=== PATIENT | female | born 1965 | race African-American/Black ===

== ENCOUNTER 2020-12-05 10:42 | Emergency (ER) | payer MEDICAID ==
[~2020-12-05] VITALS: Ht 160 cm; Wt 69.0 kg
[2020-12-05] MEDS ORDERED: ONDANSETRON HCL 4MG/2ML INJ IV STA ×2 (11:10→12:21)
[2020-12-05] MEDS ORDERED: MORPHINE SULFATE 4 MG/ML CPJ (NOT FOR IM USE) IV STA ×2 (11:10→12:21)
[2020-12-05] MEDS ORDERED: SODIUM CHLORIDE 0.9% 1,000 ML IV ONE (11:15)
[2020-12-05 11:30] LABS: BASOPHILS % 0.3 % (0.0-2.0); EOSINOPHILS % 0.8 % (0.0-5.0); HEMATOCRIT. 28.4 % (36.0-48.0); LYMPHOCYTES % 9.7 % (20.0-50.0); MEAN CORPUSCULAR HEMOGLOBIN 35.7 pg (28.0-32.0); MEAN CORPUSCULAR VOLUME 101.3 fL (81.0-99.0); MEAN PLATELET VOLUME 7.2 fl (7.4-10.4); MONOCYTES % 11.7 % (2.0-8.0); NEUTROPHILS % 77.5 % (40.0-76.0); PLATELET 289 x1000/uL (130-400); RED BLOOD CELL COUNT 2.81 mill/uL (4.2-5.4)
[2020-12-05 11:37] LABS: CHLORIDE 103 mEq/L (98-107)
[2020-12-05 11:42] LABS: INR 0.9; PARTIAL THROMBOPLASTIN TIME 28.8 sec (23.4-31.0); PROTHROMBIN TIME 10.1 sec (9.6-11.0)
[2020-12-05 12:43] LABS: CLARITY URINE CLEAR (CLEAR); COLOR URINE YELLOW (YELLOW); KETONES URINE NEGATIVE (NEGATIVE); LEUKOCYTE ESTERASE URINE NEGATIVE (NEGATIVE); NITRITE URINE POSITIVE (NEGATIVE); OCCULT BLOOD URINE TRACE (NEGATIVE); PH URINE 7.5 (4.5-8.0); PROTEIN URINE TRACE (NEGATIVE); SPECIFIC GRAVITY URINE 1.023 (1.005-1.030)
[2020-12-05] MEDS ORDERED: IOHEXOL-300 100 ML BOTTLE ONE (12:47)
[2020-12-05] MEDS ORDERED: PIPERACILLIN/TAZ 3.375G PREMIX 50 ML IV ONE (17:30)
[2020-12-06] MEDS ORDERED: MORPHINE SULFATE 4 MG/ML CPJ (NOT FOR IM USE) IV NR (16:15)
[2020-12-06] MEDS ORDERED: ONDANSETRON HCL 4MG/2ML INJ IV NR (16:30)
[2020-12-06 18:21] LABS: HEMATOCRIT. 31.3 % (36.0-48.0); MEAN CORPUSCULAR HEMOGLOBIN 35.4 pg (28.0-32.0); MEAN CORPUSCULAR VOLUME 101.2 fL (81.0-99.0); MEAN PLATELET VOLUME 7.1 fl (7.4-10.4); PLATELET 332 x1000/uL (130-400); RED CELL DISTRIBUTION WIDTH 13.1 % (11.6-14.6)
[2020-12-06 18:28] LABS: CHLORIDE 101 mEq/L (98-107)
[2020-12-06] MEDS ORDERED: FUROSEMIDE 40MG/4ML VIAL IVP ONE (19:30)
[2020-12-06 22:22] LABS: PLATELET ESTIMATE NORMAL
[2020-12-06 23:14] VITALS: BP 124/52
== END 2020-12-06 23:39 | disposition short-term general hospital (02) ==
LOC: ER 11:27
DX: S22.31XA Fracture of one rib, right side, initial encounter for closed fracture (principal); S22.21XA Fracture of manubrium, initial encounter for closed fracture; S22.20XA Unspecified fracture of sternum, initial encounter for closed fracture; J90 Pleural effusion, not elsewhere classified; R07.89 Other chest pain; R10.9 Unspecified abdominal pain; I10 Essential (primary) hypertension; V43.02XA Car driver injured in collision with other type car in nontraffic accident, initial encounter; Y93.89 Activity, other specified; Y92.89 Other specified places as the place of occurrence of the external cause; Y99.8 Other external cause status
CPT/HCPCS: 36415; 71045; 71260; 74177; 80053; 81003; 83690; 83880; 84484; 85025; 85610; 85730; 86850; 86900; 86901; 87086; 93005; 96365; 96375; 96376; 99291; J1940; J2270; J2405; J2543; J7030; Q9967